=== PATIENT | female | born 1990 | race Two or more races ===

== ENCOUNTER 2019-04-12 19:27 | Emergency (ER) | payer SELFPAY ==
[~2019-04-12] VITALS: Ht 154.9 cm; Wt 67.1 kg
[2019-04-12 19:38] VITALS: BP 124/71
[2019-04-12] MEDS ORDERED: DIAZEPAM 10 MG TABLET ONE (19:45)
[2019-04-12] MEDS ORDERED: DIAZEPAM 10 MG TABLET PO ONE (20:00)
== END 2019-04-12 20:27 | disposition home or self-care (01) ==
LOC: ER 19:28
DX: F41.9 Anxiety disorder, unspecified (principal); E11.9 Type 2 diabetes mellitus without complications